=== PATIENT | female | born 1985 | race Two or more races ===

== ENCOUNTER 2024-02-08 17:20 | Emergency (ER) | payer MEDICAID ==
[~2024-02-08] VITALS: Ht 157.5 cm; Wt 107.3 kg
[2024-02-08 18:27] VITALS: BP 130/73; PULSE 79; RESP 17; TEMP 99; O2SAT 98
[2024-02-08] MEDS ORDERED: KETOROLAC TROMETH 60MG/2ML VIAL IM ONE (18:30)
[2024-02-08] MEDS: HYDROcodone-ACET 5/325MG TAB PO ONE (18:32)
[2024-02-08] MEDS: cefTRIAXone SOD 1,000 MG VL IM ONE (18:32)
--- NOTE | 2024-02-08 18:44 | ED.PDOC ---
Eye-HPI HPI Comments This is a 38-year-old female presents to the ED chief complaint dental pain. Patient reports dental pain times 24 hours complaining of left upper jaw and dental pain. She reports taking [id number] ibuprofen with little relief. She describes pain as throbbing and achy in nature 10/10 on pain scale nonradiating. Patient denies trauma, fevers, chills, nausea, vomiting or abdominal pain. Chief Complaint: Tooth Pain Time Seen by MD: 17:54 Reviewed Notes: Nurses Notes, Medications, Allergies Allergies: Coded Allergies: NO KNOWN ALLERGIES (Unverified , 02/08/24) Home Meds Active Scripts Amoxicillin & Pot Clavulanate (AUGMENTIN TABLET) 875 Mg Tb, 1 TAB PO BID for 7 Days, #14 TAB Prov:REN FOREMAN JERI 02/08/24 Mode of Arrival: Ambulatory Past Medical History PAST MEDICAL HISTORY: Denies Surgical History: Denies all surgeries Surgical History (Other): Heart surgery a odor repair Heart Valve repair GEOLOGY FACULTY MEMBER History: No Pertinent GEOLOGY FACULTY MEMBER History Family History Family History: Reviewed,noncontributory to illness Social History Smoker: Non-Smoker Alcohol: Denies ETOH Use Drugs: Denies Drug Use Constitutional: denies: chills, diaphoresis, fatigue, fever, malaise, sweats, weakness, others EENTM: reports: others (Dental pain); denies: blurred vision, double vision, ear bleeding, ear discharge, ear drainage, ear pain, ear ringing, eye pain, eye redness, hearing loss, mouth pain, mouth swelling, nasal discharge, nose bleeding, nose congestion, nose pain, photophobia, tearing, throat pain, throat swelling, voice changes Respiratory: denies: cough, hemoptysis, orthopnea, SOB at rest, shortness of breath, SOB with excertion, stridor, wheezing, others Cardiovascular: denies: chest pain, dizzy spells, diaphoresis, Dyspnea on exertion, edema, irregular heart beat, left arm pain, lightheadedness, palpitations, PND, syncope, others Gastrointestinal: denies: abdomen distended, abdominal pain, blood streaked bowels, constipated, diarrhea, dysphagia, difficulty swallowing, hematemesis, melena, nausea, poor appetite, poor fluid intake, rectal bleeding, rectal pain, vomiting, others Genitourinary: denies: abnormal vagina bleeding, burning, dyspareunia, dysuria, flank pain, frequency, hematuria, incontinence, pain, , vagina discharge, urgency, others Neurological: denies: dizziness, fainting, headache, left sided numbness, left sided weakness, numbness, paresthesia, pre-existing deficit, right sided numbness, right sided weakness, seizure, speech problems, tingling, tremors, weakness, others Musculoskeletal: denies: back pain, gout, joint pain, joint swelling, muscle pain, muscle stiffness, neck pain, others Integumetry: denies: bruises, change in color, change in hair/nails, dryness, laceration, lesions, lumps, rash, wounds, others Allergic/Immunocompromised: denies: Difficulty Healing, Frequent Infections, Hives, Itching, others Hematologic/Lymphatic: denies: anemia, blood clots, easy bleeding, easy bruising, swollen glands, others Endocrine: denies: excessive hunger, excessive sweating, excessive thirst, excessive urination, flushing, intolerance to cold, intolerance to heat, unexplained weight gain, unexplained weight loss, others Psychiatric: denies: anxiety, bipolar disorder, depression, hopeless, panic disorder, schizophrenia, sleepless, suicidal, others Physical Exam General Appearance: No Apparent Distress, Normal HEENT: Normal ENT Inspection, Pharynx Normal, TMs Normal Neck: Full Range of Motion, Non-Tender Respiratory: Lungs Clear, No Respiratory Distress, Normal Breath Sounds Cardiovascular: No Edema, No JVD, No Murmur, No Gallop, Normal Peripheral Pulses, Regular Rate/Rhythm Breast Exam: Deferred Gastrointestinal: No Organomegaly, Non Tender, No Pulsatile Mass, Normal Bowel Sounds, Soft Genitalia: Deferred Pelvic: Deferred Rectal: Deferred Extremities: Normal capillary refill, Normal inspection, Normal range of motion, Non-tender, No pedal edema Musculoskeletal : Apperance: Normal Neurologic: Alert, 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 Was a procedure done?: No EENT DIFF Eye: N/A Ear: Dental X-Ray, Labs, Meds, VS Vital Signs Date Time Temp Pulse Resp B/P (MAP) Pulse Ox O2 Delivery O2 Flow Rate FiO2 02/08/24 18:27 79 17 98 Room Air 02/08/24 18:27 99.0 79 17 130/73 (92) 98 99.0 02/08/24 17:43 99.0 79 17 130/73 (92) 98 Current Medications Medications (Trade) Dose Ordered Sig/Rani Route Start Time Stop Time Status Last Admin Acetaminophen/ Hydrocodone Bitart ([place] 5/325MG Tab) 1 tab ONCE ONCE PO 02/08/24 18:30 02/08/24 18:31 DC 02/08/24 18:32 Ceftriaxone Sodium (Rocephin) 1,000 mg ONCE ONCE IM 02/08/24 18:30 02/08/24 18:31 DC 02/08/24 18:32 X-Ray, Labs, Meds, VS Comment Patient given Connell 5 mg p.o.. Patient also started on antibiotics Rocephin 1 g IM. Reports improvement in pain requesting discharge at this time. Script Augmentin twice daily x7 days and ibuprofen 800 mg. Advised to follow up with dental. ER return precautions given patient indicated understanding patient agrees with discharge plan of care Time of 1ST Reevaluation: 19:31 Reevaluation 1ST: Improved Patient Education/Counseling: Diagnosis, Treatment, Prognosis, Need For Follow Up Family Education/Counseling: Diagnosis, Treatment, Prognosis, Need For Follow Up Departure 1 Departure Time of Disposition: 19:34 Impression: Primary Impression: Dental infection Disposition: 01 HOME / SELF CARE / HOMELESS Condition: Stable e-Prescriptions Amoxicillin & Pot Clavulanate (AUGMENTIN TABLET) 875 Mg Tb 1 TAB PO BID for 7 Days, #14 TAB Prov: REN FOREMAN 02/08/24 Discharged With: Spouse Critical Care Note Critical Care Time?: No Stability Stability form required: REN Dutta Feb 08, 2024 18:44
[2024-02-08] MEDS ORDERED: AUG875T PO (19:34)
== END 2024-02-08 19:34 | disposition home or self-care (01) ==
LOC: ER 17:20
DX: K04.7 Periapical abscess without sinus (principal)
CPT/HCPCS: 96372; 99283; J0696

== ENCOUNTER 2024-11-02 21:23 | Emergency (ER) | payer MEDICAID ==
[~2024-11-02] VITALS: Ht 177.8 cm; Wt 109.1 kg
[2024-11-02 23:20] VITALS: BP 124/84; PULSE 84; RESP 16; TEMP 98.9; O2SAT 96
[2024-11-02] MEDS: HYDROcodone-ACET 5/325MG TAB PO ONE (23:32)
[2024-11-02] MEDS: cefTRIAXone SOD 1,000 MG VL IM ONE (23:32)
[2024-11-02] MEDS: KETOROLAC TROMETH 60MG/2ML VIAL IM ONE (23:33)
[2024-11-02] MEDS ORDERED: IBUP-1456 PO (23:45)
[2024-11-02] MEDS ORDERED: CLIN1CAP70 PO (23:45)
--- NOTE | 2024-11-02 23:45 | ED.PDOC ---
Eye-HPI HPI Comments PATIENT COMES WITH C/C OF FEVER ALL DAY HIGH OF 103 TOOK TYLENOL 1 HOUR AGO PATIENT ALSO COMPLAINS OF UPPER LEFT TOOTH PAIN AND SWELLING CURRENT TEMP 99.2 Chief Complaint: Fever Time Seen by MD: 21:36 Reviewed Notes: Nurses Notes, Medications, Allergies Allergies: Coded Allergies: Aspirin (Verified Allergy, Unknown, 11/02/24) Information Source: Patient Mode of Arrival: Ambulatory Past Medical History PAST MEDICAL HISTORY: Denies Surgical History: Denies all surgeries SPANISH TUTOR History: No Pertinent SPANISH TUTOR History Family History Family History: Reviewed,noncontributory to illness Social History Smoker: Non-Smoker Alcohol: Denies ETOH Use Drugs: Denies Drug Use All Other Systems: Reviewed and Negative (SEE HPI) Physical Exam General Appearance: No Apparent Distress, Normal HEENT: Pharynx Normal, TMs Normal, Other (TRACE EDEMA LEFT CHEEK LEFT UPPER BACK MOLAR NOTED DECAY WITHOUT DRAINAGE) Neck: Full Range of Motion, Non-Tender, Normal, Normal Inspection Respiratory: Chest Non-Tender, Lungs Clear, No Accessory Muscle Use, No R espiratory Distress, Normal Breath Sounds Cardiovascular: No Edema, No JVD, No Murmur, No Gallop, Normal Peripheral Pulses, Regular Rate/Rhythm Breast Exam: Deferred Gastrointestinal: No Organomegaly, Non Tender, No Pulsatile Mass, Normal Bowel Sounds, Soft Genitalia: Deferred Pelvic: Deferred Rectal: Deferred Extremities: No calf tenderness, Normal capillary refill, Normal inspection, Normal range of motion, Non-tender, No pedal edema Musculoskeletal : Apperance: Normal Neurologic: Alert, 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 Was a procedure done?: No EENT DIFF Eye: N/A Ear: Otitis Media, Dental Sore Throat: Sivakumar's Angina X-Ray, Labs, Meds, VS Vital Signs Date Time Temp Pulse Resp B/P (MAP) Pulse Ox O2 Delivery O2 Flow Rate FiO2 11/02/24 21:29 99.2 90 20 116/75 93 99.2 Current Medications Medications (Trade) Dose Ordered Sig/Rani Route Start Time Stop Time Status Last Admin Ketorolac Tromethamine (Toradol Injection) 60 mg ONCE ONCE IM 11/02/24 22:30 11/02/24 22:31 DC 11/02/24 23:33 Ceftriaxone Sodium (Rocephin) 1,000 mg ONCE ONCE IM 11/02/24 22:30 11/02/24 22:31 DC 11/02/24 23:32 Acetaminophen/ Hydrocodone Bitart ([place] 5/325MG Tab) 1 tab ONCE ONCE PO 11/02/24 22:30 11/02/24 22:31 DC 11/02/24 23:32 X-Ray, Labs, Meds, VS Comment Patient given Toradol 60 mg IM, [place] 5 mg p.o., and Rocephin 1 g IM reports improvement in pain requesting discharge at this time. Script trial of antibiotics and NSAID advised take medication as prescribed side effects were discussed. Advised on ER return precautions patient indicates understanding agrees with discharge plan of care. Advised to call her dentist in the morning and schedule an appointment for resolution Time of 1ST Reevaluation: 21:50 Reevaluation 1ST: Unchanged Time of 2ND Reevaluation: 23:43 Reevaluation 2ND: Improved Patient Education/Counseling: Diagnosis, Treatment, Prognosis, Need For Follow Up Family Education/Counseling: Diagnosis, Treatment, Prognosis, Need For Follow Up SEPSIS Sepsis Screen Date sepsis recognized/suspect: Nov 02, 2024 Time Sepsis recognized/suspect: 2131 Recent Procedure: No On Antibiotic Therapy: No Respiratory Rate >20: No Heart Rate >90: No Temp<36 C (96.8 F) or >38.3 C: No SBP <90 or MAP <65 mmHG: No New Acute Mental Status Change: No Is the patient on CPAP, BIPAP,: No Vital Signs Date Time Temp Pulse Resp B/P (MAP) Pulse Ox O2 Delivery O2 Flow Rate FiO2 11/02/24 21:29 99.2 90 20 116/75 93 99.2 Medications Medications Dose Ordered Sig/Rani Route Start Time Stop Time Status Last Admin Dose Admin Acetaminophen/ Hydrocodone Bitart 1 tab ONCE ONCE PO 11/02/24 22:30 11/02/24 22:31 DC 11/02/24 23:32 Ceftriaxone Sodium 1,000 mg ONCE ONCE IM 11/02/24 22:30 11/02/24 22:31 DC 11/02/24 23:32 Ketorolac Tromethamine 60 mg ONCE ONCE IM 11/02/24 22:30 11/02/24 22:31 DC 11/02/24 23:33 Departure 1 Departure Time of Disposition: 23:43 Impression: Primary Impression: Dental infection Disposition: 01 HOME / SELF CARE / HOMELESS Condition: Stable e-Prescriptions Ibuprofen (Ibuprofen) 800 Mg Tab 800 MG PO Q8HP PRN for 5 Days, #15 TAB Prov: REN FOREMAN 11/02/24 Clindamycin Hcl (Clindamycin Hcl) 300 Mg Cap 300 MG PO QID for 7 Days, #28 CAP Prov: REN FOREMAN 11/02/24 Discharged With: Spouse Critical Care Note Critical Care Time?: No Stability Stability form required: No REN FOREMAN Nov 02, 2024 23:45
--- NOTE | 2024-11-03 00:01 | ED.PDOC ---
History of Present Illness HPI Comments 39 y/o F presents with c/c dental pain, with associated facial swelling and fever. Denial of any discharge, numbness, tingling, nausea, vomiting, or further associated symptoms. Chief Complaint: Fever Time Seen by MD: 22:15 Reviewed Notes: Nurses Notes, Medications, Allergies Allergies: Coded Allergies: Aspirin (Verified Allergy, Unknown, 11/02/24) Information Source: Patient Mode of Arrival: Ambulatory Severity: Moderate Timing: Hours Duration: Since onset Prehospital treatment: None Past Medical History PAST MEDICAL HISTORY: Denies Surgical History: Denies all surgeries FLOATING DERRICK OPERATOR History: No Pertinent FLOATING DERRICK OPERATOR History Family History Family History: Reviewed,noncontributory to illness Social History Smoker: Non-Smoker Alcohol: Denies ETOH Use Drugs: Denies Drug Use Lives In: Home All Other Systems: Reviewed and Negative (Comprehensive systems review obtained and negative except for what is stated in the HPI.) Was a procedure done? Was a procedure done?: No Differential Dx Considerations may include: dental abscess, sepsis, among others X-Ray, Labs, Meds, VS Vital Signs Date Time Temp Pulse Resp B/P (MAP) Pulse Ox O2 Delivery O2 Flow Rate FiO2 11/02/24 21:29 99.2 90 20 116/75 93 99.2 Current Medications Medications (Trade) Dose Ordered Sig/Rani Route Start Time Stop Time Status Last Admin Ketorolac Tromethamine (Toradol Injection) 60 mg ONCE ONCE IM 11/02/24 22:30 11/02/24 22:31 DC 11/02/24 23:33 Ceftriaxone Sodium (Rocephin) 1,000 mg ONCE ONCE IM 11/02/24 22:30 11/02/24 22:31 DC 11/02/24 23:32 Acetaminophen/ Hydrocodone Bitart ([place] 5/325MG Tab) 1 tab ONCE ONCE PO 11/02/24 22:30 11/02/24 22:31 DC 11/02/24 23:32 Time of 1ST Reevaluation: 22:45 Reevaluation 1ST: Unchanged Patient Education/Counseling: Diagnosis, Treatment Family Education/Counseling: No Family Present SEPSIS Sepsis Screen Date sepsis recognized/suspect: Nov 02, 2024 Time Sepsis recognized/suspect: 2131 Recent Procedure: No On Antibiotic Therapy: No Respiratory Rate >20: No Heart Rate >90: No Temp<36 C (96.8 F) or >38.3 C: No SBP <90 or MAP <65 mmHG: No New Acute Mental Status Change: No Is the patient on CPAP, BIPAP,: No Vital Signs Date Time Temp Pulse Resp B/P (MAP) Pulse Ox O2 Delivery O2 Flow Rate FiO2 11/02/24 21:29 99.2 90 20 116/75 93 99.2 Medications Medications Dose Ordered Sig/Rani Route Start Time Stop Time Status Last Admin Dose Admin Acetaminophen/ Hydrocodone Bitart 1 tab ONCE ONCE PO 11/02/24 22:30 11/02/24 22:31 DC 11/02/24 23:32 Ceftriaxone Sodium 1,000 mg ONCE ONCE IM 11/02/24 22:30 11/02/24 22:31 DC 11/02/24 23:32 Ketorolac Tromethamine 60 mg ONCE ONCE IM 11/02/24 22:30 11/02/24 22:31 DC 11/02/24 23:33 Critical Care Note Critical Care Time?: No Stability Stability form required: No Heart Score Heart Score: Heart Score Response (Comments) Value History N/A 0 EKG N/A 0 Age N/A 0 Risk Factors N/A 0 Troponin N/A 0 Total 0 I personally scribed for ER ([email or web address]) on 11/03/24 at 00:01. Electronically submitted by Messi Spencer ([email or web address]). ER Nov 03, 2024 00:01
== END 2024-11-02 23:50 | disposition home or self-care (01) ==
LOC: ER 21:23
DX: K04.7 Periapical abscess without sinus (principal); Z88.6 Allergy status to analgesic agent
CPT/HCPCS: 96372; 99284; J0696; J1885